=== PATIENT | female | born 1990 | race Caucasian/White ===

== ENCOUNTER 2017-01-27 15:06 | Emergency (ER) | payer OTHER | END 2017-01-27 15:57 | disposition home or self-care (01) | LOC: ER1 15:06 | DX: S61.452A Open bite of left hand, initial encounter (principal); J45.909 Unspecified asthma, uncomplicated; Z88.2 Allergy status to sulfonamides; Z79.51 Long term (current) use of inhaled steroids; Z79.899 Other long term (current) drug therapy; W55.01XA Bitten by cat, initial encounter | CPT/HCPCS: 90471; 90714; 99283 ==